=== PATIENT | male | born 1990 | race Caucasian/White ===

== ENCOUNTER 2020-11-02 00:47 | Emergency (ER) | payer OTHER ==
[~2020-11-02] VITALS: Ht 172.7 cm; Wt 70.5 kg
[2020-11-02 01:33] LABS: COVID AG,FIA SOURCE NASOPHARYNGEAL
[2020-11-02 01:36] LABS: BASOPHILS % (AUTO) 0.8 % (0.0-2.0); EOSINOPHILS % (AUTO) 0.5 % (1.0-6.0); HEMATOCRIT 40.1 % (41-53); HEMOGLOBIN 12.9 g/dL (13.5-17.5); LYMPHOCYTES # (AUTO) 1.6 K/uL (1.0-4.8); MEAN CORPUSCULAR HEMOGLOBIN 27.9 pg (26.0-34.0); MEAN CORPUSCULAR HGB CONC 32.3 G/dL (31.0-37.0); MEAN CORPUSCULAR VOLUME 87 fL (80-100); MONOCYTES # (AUTO) 1.1 K/uL (0.1-1.0); MONOCYTES % (AUTO) 6.1 % (2.0-9.0); NEUTROPHILS # (AUTO) 15.1 K/uL (1.8-7.7); NEUTROPHILS % (AUTO) 83.6 % (40.0-70.0); PLATELET COUNT (AUTO) 299 K/uL (150-450); RED BLOOD CELL COUNT(AUTO) 4.63 MIL/uL (4.50-5.90)
[2020-11-02 01:47] LABS: ANION GAP 5 mmol/L (8-16); CALCIUM, TOTAL 8.6 mg/dL (8.8-10.5); CARBON DIOXIDE 30 mmol/L (22-29); CHLORIDE 104 mmol/L (98-107); CREATININE 0.81 mg/dL (0.60-1.30); GLOMERULAR FILTR. RATE CALC > 60 mL/min (>60); GLUCOSE,RANDOM 93 mg/dL (70-110); POTASSIUM 4.1 mmol/L (3.5-5.1); SODIUM SERUM 139 mmol/L (136-145); UREA NITROGEN, BLOOD 8 mg/dL (7-18)
[2020-11-02 01:54] LABS: ACETAMINOPHEN < 2 mcg/mL (10-30); ALANINE AMINOTRANSFERASE 28 U/L (12-78); ALBUMIN 3.7 g/dL (3.4-5.0); ALKALINE PHOSPHATASE 78 U/L (46-116); ASPARTATE AMINOTRANSFERASE 26 U/L (15-37); BILIRUBIN,TOTAL 0.2 mg/dL (0.1-1.0); TOTAL PROTEIN, SERUM 7.2 g/dL (6.4-8.2)
[2020-11-02 01:55] LABS: SALICYLATE < 2.8 mg/dL (2.8-20.0)
[2020-11-02 04:06] VITALS: BP 116/64
== END 2020-11-02 04:53 ==
LOC: EMS 00:49
DX: T40.411A Poisoning by fentanyl or fentanyl analogs, accidental (unintentional), initial encounter (principal); F17.210 Nicotine dependence, cigarettes, uncomplicated; F14.90 Cocaine use, unspecified, uncomplicated; F12.90 Cannabis use, unspecified, uncomplicated; F19.90 Other psychoactive substance use, unspecified, uncomplicated; Z20.822 Contact with and (suspected) exposure to COVID-19; Z88.0 Allergy status to penicillin; Y92.89 Other specified places as the place of occurrence of the external cause
CPT/HCPCS: 36415; 74022; 80053; 85025; 87426; 93005; 99285; G0480; G0481

== ENCOUNTER 2020-11-03 09:42 | Inpatient (IN) | payer OTHER ==
[~2020-11-03] VITALS: Ht 172.7 cm; Wt 68.2 kg
[2020-11-03 10:23] LABS: BASOPHILS % (AUTO) 0.4 % (0.0-2.0); EOSINOPHILS % (AUTO) 0.1 % (1.0-6.0); HEMATOCRIT 43.1 % (41-53); HEMOGLOBIN 14.3 g/dL (13.5-17.5); LYMPHOCYTES # (AUTO) 0.7 K/uL (1.0-4.8); LYMPHOCYTES % (AUTO) 5.8 % (22.0-44.0); MEAN CORPUSCULAR HEMOGLOBIN 28.2 pg (26.0-34.0); MEAN CORPUSCULAR HGB CONC 33.1 G/dL (31.0-37.0); MEAN CORPUSCULAR VOLUME 85 fL (80-100); MONOCYTES # (AUTO) 0.7 K/uL (0.1-1.0); MONOCYTES % (AUTO) 5.2 % (2.0-9.0); NEUTROPHILS # (AUTO) 11.3 K/uL (1.8-7.7); PLATELET COUNT (AUTO) 323 K/uL (150-450); RED BLOOD CELL COUNT(AUTO) 5.06 MIL/uL (4.50-5.90)
[2020-11-03 10:26] LABS: NEUTROPHILS % (AUTO) 88.5 % (40.0-70.0)
[2020-11-03] MEDS ORDERED: CloNIDine HCL 0.1 MG TABLET PO ONE (10:30)
[2020-11-03] MEDS ORDERED: ONDANSETRON HCL 4 MG/2 ML VIAL IVP ONE (10:30)
[2020-11-03] MEDS ORDERED: KETOROLAC TROMETHAMINE 30 MG/ML VIAL IVP ONE (10:30)
[2020-11-03 10:31] LABS: ANION GAP 8 mmol/L (8-16); CALCIUM, TOTAL 9.2 mg/dL (8.8-10.5); CARBON DIOXIDE 27 mmol/L (22-29); CHLORIDE 101 mmol/L (98-107); CREATININE 0.68 mg/dL (0.60-1.30); GLOMERULAR FILTR. RATE CALC > 60 mL/min (>60); GLUCOSE,RANDOM 104 mg/dL (70-110); POTASSIUM 3.9 mmol/L (3.5-5.1); SODIUM SERUM 136 mmol/L (136-145); UREA NITROGEN, BLOOD 9 mg/dL (7-18)
[2020-11-03 10:38] LABS: ALANINE AMINOTRANSFERASE 28 U/L (12-78); ALBUMIN 3.9 g/dL (3.4-5.0); ALKALINE PHOSPHATASE 83 U/L (46-116); ASPARTATE AMINOTRANSFERASE 27 U/L (15-37); BILIRUBIN,TOTAL 0.5 mg/dL (0.1-1.0)
[2020-11-03] MEDS ORDERED: 0.9% SODIUM CHLORIDE 10 ML SYRINGE IVP PRN (11:45)
[2020-11-03] MEDS ORDERED: ACETAMINOPHEN 325 MG TABLET PO PRN ×2 (11:45→15:30)
[2020-11-03] MEDS ORDERED: ONDANSETRON HCL 4 MG/2 ML VIAL IVP PRN (11:45)
[2020-11-03 12:04] LABS: COVID AG,FIA SOURCE NASOPHARYNGEAL
[2020-11-03 12:48] LABS: AMPHET/METH SCREEN,URINE NEGATIVE (NEGATIVE); BARBITURATE SCREEN, URINE NEGATIVE (NEGATIVE); BENZODIAZEPINES SCREEN,URINE NEGATIVE (NEGATIVE); CANNABINOID SCREEN,URINE POSITIVE (NEGATIVE); COCAINE SCREEN,URINE NEGATIVE (NEGATIVE); METHADONE SCREEN, URINE NEGATIVE (NEGATIVE); OPIATE SCREEN,URINE NEGATIVE (NEGATIVE)
[2020-11-03 12:52] LABS: PHENCYCLIDINE SCREEN,URINE NEGATIVE (NEGATIVE)
[2020-11-03 13:52] VITALS: BP 125/70
[2020-11-03] MEDS ORDERED: CloNIDine HCL 0.1 MG TABLET PO PRN (15:30)
[2020-11-03] MEDS ORDERED: TraZODone HCL 50 MG TABLET PO PRN (15:30)
[2020-11-03] MEDS ORDERED: IPRATROPIUM BROMIDE 0.5 MG/2.5 ML NEB SOLUTION NEB PRN (15:30)
[2020-11-03] MEDS ORDERED: ALBUTEROL SULFATE 2.5 MG/0.5 ML NEB SOLUTION NEB PRN (15:30)
[2020-11-03] MEDS ORDERED: MAGNESIUM HYDROXIDE SUSPENSION 30 ML UDCUP PO PRN (15:30)
[2020-11-03] MEDS ORDERED: MAG HYDROX/AL HYDROX/SIMETH ES 30 ML SUSPENSION UDCUP PO PRN (15:30)
[2020-11-03] MEDS ORDERED: IBUPROFEN 600 MG TABLET PO PRN (15:30)
[2020-11-03] MEDS ORDERED: BACLOFEN 10 MG TABLET PO PRN (15:30)
[2020-11-03] MEDS ORDERED: BISACODYL 10 MG RECTAL RECTAL SUPPOSITORY PR PRN (15:30)
[2020-11-03] MEDS: LORazepam 1 MG TABLET PO PRN (16:00)
[2020-11-03] MEDS: SODIUM CHLORIDE 0.45% 1,000 ML IV SCH (16:00)
[2020-11-03] MEDS: ONDANSETRON HCL 4 MG/2 ML VIAL IVP PRN (19:37)
[2020-11-03 20:18] VITALS: BP 131/77
[2020-11-03] MEDS: DOCUSATE SODIUM 100 MG CAPSULE PO SCH (21:00)
[2020-11-03 23:56] VITALS: BP 119/67
[2020-11-04] MEDS: ACETAMINOPHEN 325 MG TABLET PO PRN (00:01)
[2020-11-04] MEDS: ONDANSETRON HCL 4 MG/2 ML VIAL IVP PRN ×3 (03:25→19:47)
[2020-11-04] MEDS: SODIUM CHLORIDE 0.45% 1,000 ML IV SCH (03:29)
[2020-11-04] MEDS: DICYCLOMINE HCL 10 MG CAPSULE PO PRN (03:36)
[2020-11-04] MEDS: LORazepam 1 MG TABLET PO PRN ×3 (03:38→22:27)
[2020-11-04 04:37] VITALS: BP 118/61
[2020-11-04] MEDS: PROMETHAZINE HCL 25 MG TABLET PO PRN ×4 (08:07→22:27)
[2020-11-04] MEDS: DOCUSATE SODIUM 100 MG CAPSULE PO SCH ×3 (08:07→21:00)
[2020-11-04 08:12] VITALS: BP 120/78
[2020-11-04] MEDS ORDERED: SUMAtriptan SUCCINATE 6 MG/0.5 ML VIAL SQ ONE ×2 (09:15→10:46)
[2020-11-04] MEDS: DEXTROSE 5%-0.45% SODIUM CHL 1,000 ML IV SCH (11:02)
[2020-11-04] MEDS: CloNIDine HCL 0.1 MG TABLET PO PRN (17:40)
[2020-11-04 19:46] VITALS: BP 115/84
[2020-11-04] MEDS: PANTOPRAZOLE SODIUM 40 MG/VIAL IVP SCH (19:47)
[2020-11-05 00:57] VITALS: BP 126/77
[2020-11-05 05:11] VITALS: BP 126/81
[2020-11-05] MEDS: PROMETHAZINE HCL 25 MG TABLET PO PRN (05:25)
[2020-11-05] MEDS: ACETAMINOPHEN 325 MG TABLET PO PRN (05:25)
[2020-11-05 07:57] LABS: MAGNESIUM 2.2 mg/dL (1.80-2.40); PHOSPHORUS 4.3 mg/dL (2.5-4.9)
[2020-11-05 08:14] LABS: BASOPHILS % (AUTO) 0.4 % (0.0-2.0); EOSINOPHILS % (AUTO) 0 % (1.0-6.0); HEMATOCRIT 46.8 % (41-53); HEMOGLOBIN 15.5 g/dL (13.5-17.5); LYMPHOCYTES # (AUTO) 2.1 K/uL (1.0-4.8); LYMPHOCYTES % (AUTO) 12.4 % (22.0-44.0); MEAN CORPUSCULAR HEMOGLOBIN 28.2 pg (26.0-34.0); MEAN CORPUSCULAR HGB CONC 33.1 G/dL (31.0-37.0); MEAN CORPUSCULAR VOLUME 85 fL (80-100); MONOCYTES % (AUTO) 12.1 % (2.0-9.0); NEUTROPHILS # (AUTO) 12.6 K/uL (1.8-7.7); NEUTROPHILS % (AUTO) 75.1 % (40.0-70.0); PLATELET COUNT (AUTO) 379 K/uL (150-450); RED CELL DISTRIBUTION WIDTH 15.1 % (11.5-14.5)
[2020-11-05 08:22] VITALS: BP 124/70
[2020-11-05] MEDS: PANTOPRAZOLE SODIUM 40 MG/VIAL IVP SCH ×2 (08:37→19:50)
[2020-11-05] MEDS: MULTIVITAMINS WITH MINERALS, THERAPEUTIC TABLET PO SCH (08:37)
[2020-11-05 11:11] LABS: APPEARANCE,URINE CLEAR (CLEAR); BILIRUBIN,URINE NEGATIVE (NEGATIVE); GLUCOSE, URINE (UA) NEGATIVE (NEGATIVE); KETONES,URINE NEGATIVE (NEGATIVE); LEUKOCYTE ESTERASE ,URINE NEGATIVE (NEGATIVE); NITRATE,URINE NEGATIVE (NEGATIVE); OCCULT BLOOD,URINE LARGE (NEGATIVE); PH,URINE 5.5 (5.0-8.0); PROTEIN,URINE TRACE (NEGATIVE); UROBILINOGEN,URINE 0.2 mg/dL (<=1.0)
[2020-11-05 11:32] LABS: BACTERIA,URINE None Seen /HPF (None Seen); SQUAMOUS EPITHELIAL CELL,UR Few /LPF (None Seen); WBC,URINE None Seen /HPF (0-5)
[2020-11-05] MEDS: LORazepam 1 MG TABLET PO PRN (13:18)
[2020-11-05] MEDS: CloNIDine HCL 0.1 MG TABLET PO PRN (13:18)
[2020-11-05] MEDS: DEXTROSE 5%-0.45% SODIUM CHL 1,000 ML IV SCH (13:25)
[2020-11-05] MEDS: NICOTINE 21 MG/24 HOUR PATCH TD SCH (15:15)
[2020-11-05] MEDS ORDERED: NICOTINE 21 MG/24 HOUR PATCH TD ONE (16:45)
[2020-11-05] MEDS: DICYCLOMINE HCL 10 MG CAPSULE PO PRN (18:43)
[2020-11-05 19:50] VITALS: BP 113/73
[2020-11-05 23:25] VITALS: BP 116/79
[2020-11-06] MEDS: LORazepam 1 MG TABLET PO PRN ×3 (01:40→14:24)
[2020-11-06] MEDS: DEXTROSE 5%-0.45% SODIUM CHL 1,000 ML IV SCH ×3 (01:47→23:57)
[2020-11-06] MEDS: LOPERAMIDE HCL 2 MG/15 ML SUSPENSION UDCUP PO PRN ×3 (02:07→18:11)
[2020-11-06] MEDS: ZOLPIDEM TARTRATE 5 MG TABLET PO PRN ×2 (02:36→20:50)
[2020-11-06 04:00] VITALS: BP 121/83
[2020-11-06 06:44] LABS: BASOPHILS % (AUTO) 0.6 % (0.0-2.0); EOSINOPHILS % (AUTO) 0.4 % (1.0-6.0); HEMATOCRIT 48.7 % (41-53); HEMOGLOBIN 15.9 g/dL (13.5-17.5); LYMPHOCYTES # (AUTO) 2.7 K/uL (1.0-4.8); LYMPHOCYTES % (AUTO) 17.1 % (22.0-44.0); MEAN CORPUSCULAR HEMOGLOBIN 28.5 pg (26.0-34.0); MEAN CORPUSCULAR HGB CONC 32.8 G/dL (31.0-37.0); MEAN CORPUSCULAR VOLUME 87 fL (80-100); MONOCYTES # (AUTO) 1.7 K/uL (0.1-1.0); MONOCYTES % (AUTO) 10.7 % (2.0-9.0); NEUTROPHILS # (AUTO) 11.3 K/uL (1.8-7.7); NEUTROPHILS % (AUTO) 71.2 % (40.0-70.0); PLATELET COUNT (AUTO) 312 K/uL (150-450); RED BLOOD CELL COUNT(AUTO) 5.59 MIL/uL (4.50-5.90); RED CELL DISTRIBUTION WIDTH 14.6 % (11.5-14.5)
[2020-11-06 07:06] LABS: ALANINE AMINOTRANSFERASE 72 U/L (12-78); ALBUMIN 3.9 g/dL (3.4-5.0); ALKALINE PHOSPHATASE 85 U/L (46-116); ANION GAP 9 mmol/L (8-16); ASPARTATE AMINOTRANSFERASE 47 U/L (15-37); CALCIUM, TOTAL 8.7 mg/dL (8.8-10.5); CARBON DIOXIDE 31 mmol/L (22-29); CHLORIDE 98 mmol/L (98-107); CREATININE 0.87 mg/dL (0.60-1.30); GLOMERULAR FILTR. RATE CALC > 60 mL/min (>60); GLUCOSE,RANDOM 95 mg/dL (70-110); POTASSIUM 3.2 mmol/L (3.5-5.1); SODIUM SERUM 138 mmol/L (136-145); TOTAL PROTEIN, SERUM 8.1 g/dL (6.4-8.2); UREA NITROGEN, BLOOD 15 mg/dL (7-18)
[2020-11-06] MEDS: MULTIVITAMINS WITH MINERALS, THERAPEUTIC TABLET PO SCH (08:12)
[2020-11-06] MEDS: PANTOPRAZOLE SODIUM 40 MG/VIAL IVP SCH ×2 (08:12→20:43)
[2020-11-06] MEDS: NICOTINE 21 MG/24 HOUR PATCH TD SCH (08:13)
[2020-11-06] MEDS: CloNIDine HCL 0.1 MG TABLET PO PRN (08:17)
[2020-11-06 08:24] VITALS: BP 120/77
[2020-11-06] MEDS ORDERED: POTASSIUM CHLORIDE 20 MEQ ER TABLET PO ONE (11:30)
[2020-11-06] MEDS: CloNIDine HCL 0.1 MG TABLET PO SCH ×3 (11:37→23:55)
[2020-11-06 11:39] VITALS: BP 102/66
[2020-11-06] MEDS: HydrOXYzine PAMOATE 50 MG CAPSULE PO PRN (11:42)
[2020-11-06 15:45] VITALS: BP 111/72
[2020-11-06 19:37] VITALS: BP 107/68
[2020-11-06 23:55] VITALS: BP 116/74
[2020-11-06] MEDS: ACETAMINOPHEN 325 MG TABLET PO PRN (23:56)
[2020-11-07] MEDS: DICYCLOMINE HCL 10 MG CAPSULE PO PRN ×2 (03:06→21:41)
[2020-11-07] MEDS: LORazepam 1 MG TABLET PO PRN ×3 (03:09→23:34)
[2020-11-07 05:30] VITALS: BP 130/63
[2020-11-07] MEDS: CloNIDine HCL 0.1 MG TABLET PO SCH ×4 (05:45→23:34)
[2020-11-07 06:56] LABS: ALANINE AMINOTRANSFERASE 89 U/L (12-78); ALBUMIN 3.2 g/dL (3.4-5.0); ALKALINE PHOSPHATASE 71 U/L (46-116); ANION GAP 5 mmol/L (8-16); ASPARTATE AMINOTRANSFERASE 49 U/L (15-37); BILIRUBIN,TOTAL 0.6 mg/dL (0.1-1.0); CALCIUM, TOTAL 8.5 mg/dL (8.8-10.5); CARBON DIOXIDE 29 mmol/L (22-29); CHLORIDE 106 mmol/L (98-107); CREATININE 0.79 mg/dL (0.60-1.30); GLOMERULAR FILTR. RATE CALC > 60 mL/min (>60); GLUCOSE,RANDOM 84 mg/dL (70-110); POTASSIUM 3.8 mmol/L (3.5-5.1); SODIUM SERUM 140 mmol/L (136-145); UREA NITROGEN, BLOOD 15 mg/dL (7-18)
[2020-11-07 08:12] VITALS: BP 128/64
[2020-11-07] MEDS: PANTOPRAZOLE SODIUM 40 MG/VIAL IVP SCH ×2 (08:57→20:32)
[2020-11-07] MEDS: MULTIVITAMINS WITH MINERALS, THERAPEUTIC TABLET PO SCH (08:57)
[2020-11-07] MEDS: NICOTINE 21 MG/24 HOUR PATCH TD SCH (08:58)
[2020-11-07] MEDS: HydrOXYzine PAMOATE 50 MG CAPSULE PO PRN (14:29)
[2020-11-07 15:55] VITALS: BP 104/57
[2020-11-07] MEDS: DEXTROSE 5%-0.45% SODIUM CHL 1,000 ML IV SCH (18:20)
[2020-11-07 19:45] VITALS: BP 110/61
[2020-11-07] MEDS: ZOLPIDEM TARTRATE 5 MG TABLET PO PRN (20:32)
[2020-11-07 23:20] VITALS: BP 109/65
[2020-11-08] MEDS: DICYCLOMINE HCL 10 MG CAPSULE PO PRN (04:20)
[2020-11-08 06:00] VITALS: BP 117/67
[2020-11-08] MEDS: CloNIDine HCL 0.1 MG TABLET PO SCH ×4 (06:01→23:49)
[2020-11-08] MEDS: DEXTROSE 5%-0.45% SODIUM CHL 1,000 ML IV SCH ×2 (06:01→20:40)
[2020-11-08 08:22] VITALS: BP 116/70
[2020-11-08] MEDS: NICOTINE 21 MG/24 HOUR PATCH TD SCH (08:43)
[2020-11-08] MEDS: PANTOPRAZOLE SODIUM 40 MG/VIAL IVP SCH ×2 (08:43→20:47)
[2020-11-08] MEDS: MULTIVITAMINS WITH MINERALS, THERAPEUTIC TABLET PO SCH (08:43)
[2020-11-08] MEDS: LORazepam 1 MG TABLET PO PRN (09:00)
[2020-11-08] MEDS: LOPERAMIDE HCL 2 MG/15 ML SUSPENSION UDCUP PO PRN (09:27)
[2020-11-08 11:30] VITALS: BP 120/64
[2020-11-08] MEDS: HydrOXYzine PAMOATE 50 MG CAPSULE PO PRN (11:32)
[2020-11-08 14:21] LABS: ALANINE AMINOTRANSFERASE 62 U/L (12-78); ALBUMIN 3.2 g/dL (3.4-5.0); ALKALINE PHOSPHATASE 70 U/L (46-116); ANION GAP 4 mmol/L (8-16); ASPARTATE AMINOTRANSFERASE 19 U/L (15-37); BILIRUBIN,TOTAL 0.2 mg/dL (0.1-1.0); CALCIUM, TOTAL 8.5 mg/dL (8.8-10.5); CARBON DIOXIDE 26 mmol/L (22-29); CHLORIDE 106 mmol/L (98-107); CREATININE 0.77 mg/dL (0.60-1.30); GLOMERULAR FILTR. RATE CALC > 60 mL/min (>60); GLUCOSE,RANDOM 92 mg/dL (70-110); POTASSIUM 3.5 mmol/L (3.5-5.1); SODIUM SERUM 136 mmol/L (136-145); TOTAL PROTEIN, SERUM 6.7 g/dL (6.4-8.2); UREA NITROGEN, BLOOD 13 mg/dL (7-18)
[2020-11-08 16:28] VITALS: BP 98/54
[2020-11-08 19:15] VITALS: BP 102/57
[2020-11-08 23:56] VITALS: BP 127/73
[2020-11-09 04:54] VITALS: BP 124/72
== END 2020-11-09 06:00 | DRG 394 ==
LOC: EMS 09:45 → 6S 12:48
PROVIDERS: ADMIT Hospitalist; ATTEND Hospitalist
DX: R11.15 Cyclical vomiting syndrome unrelated to migraine (principal); F11.13 Opioid abuse with withdrawal; D72.829 Elevated white blood cell count, unspecified; F17.210 Nicotine dependence, cigarettes, uncomplicated; R31.9 Hematuria, unspecified; M25.579 Pain in unspecified ankle and joints of unspecified foot; Z20.822 Contact with and (suspected) exposure to COVID-19; Z91.19 Patient's noncompliance with other medical treatment and regimen; Z88.0 Allergy status to penicillin
CPT/HCPCS: 71045; 76770; 80053; 81001; 83735; 84100; 85025; 87040; 99285; C9113; G0480; J1885; J2405; J3030; 36415-L1; 36415-TC